=== PATIENT | male | born 1980 | race Caucasian/White ===

== ENCOUNTER 2017-03-16 16:49 | Emergency (ER) | payer BC ==
[~2017-03-16 16:49] MED LIST: FLEXERIL10 MG PO; NAPROXYN500 MG/TA1 PO; NEXIUM40 MG PO
[2017-03-16] MEDS ORDERED: CARAFATE1 G2 PO (17:09)
[2017-03-16] MEDS ORDERED: PROTONIX40 M2 PO (17:09)
[2017-03-16 18:10] LABS: URINE APPEARANCE CLEAR; URINE BILIRUBIN NEGATIVE (NEG); URINE BLOOD NEGATIVE (NEG); URINE COLOR PALE YELLOW; URINE GLUCOSE (UA) NEGATIVE (NEG); URINE KETONE NEGATIVE (NEG); URINE LEUKOCYTE ESTERASE NEGATIVE (NEG); URINE NITRITE NEGATIVE (NEG); URINE PROTEIN NEGATIVE (NEG)
[2017-03-16 18:12] LABS: BASO % 0.7 % (0-2); BASO ABSOLUTE COUNT 0.1 tho/cmm (0.0-0.2); EOS % 2.7 % (0-7); EOSINOPHIL ABSOLUTE COUNT 0.2 tho/cmm (0.0-0.7); HCT-HEMATOCRIT 37.8 % (36.0-53.5); HGB-HEMOGLOBIN 13.1 gm/dl (13.5-17.0); IMMATURE GRANULOCYTES ABSOLUTE 0.01 tho/cmm (0-0.03); IMMATURE GRANULOCYTES PERCENT 0.1 % (0-0.3); LYMPH % 23.7 % (20-45); LYMPH ABSOLUTE COUNT 1.7 tho/cmm (0.8-4.5); MCH (MEAN CORPUSCULAR HGB) 29.7 pg (28.0-32.0); MCHC MEAN CORPUSCULAR HGB CONC 34.7 % (32.0-36.0); MCV (MEAN CELL VOLUME) 85.7 fl (82.0-96.0); MEAN PLATELET VOLUME 10.9 cmc (9.4-12.4); MONO % 9.5 % (0-12); MONOCYTE ABSOLUTE COUNT 0.7 tho/cmm (0.0-1.2); NEUTROPHIL ABSOLUTE COUNT 4.4 tho/cmm (1.6-8.0); NEUTROPHIL-AUTOMATED 4.4 tho/cmm (1.6-8.0); NEUTROPHILS % 63.3 % (40-80); PLATELET COUNT 246 tho/cmm (150-450); RED BLOOD COUNT 4.41 mil/cmm (4.40-5.70); RED CELL DISTRIBUTION WIDTH 13.2 % (12.4-16.4)
[2017-03-16 18:27] LABS: ANION GAP 13 mmol/L (0-20); BLOOD UREA NITROGEN 12 mg/dl (6-24); CALCIUM 9.2 mg/dl (8.5-10.5); CARBON DIOXIDE-VENOUS 26 mmol/L (22-32); CHLORIDE 107 mmol/l (96-110); CREATININE 0.98 mg/dl (0.60-1.30); GLUCOSE 94 mg/dL (70-110); POTASSIUM 3.7 mmol/L (3.7-5.1); SODIUM 142 mmol/L (135-145); eGFR VALUE FOR BLACK >90 mL/Min
== END 2017-03-16 20:18 ==
LOC: EDMED 16:49
PROVIDERS: Emergency Medicine
DX: R00.1 Bradycardia, unspecified (principal); R55 Syncope and collapse; K21.9 Gastro-esophageal reflux disease without esophagitis; Z79.899 Other long term (current) drug therapy
CPT/HCPCS: J7030